=== PATIENT | female | born 1965 | race Native Hawaiian/Other Pacific Islander ===

== ENCOUNTER 2017-01-05 10:56 | Outpatient (CLI) | payer OTHER ==
[~2017-01-05 10:56] MED LIST: ALPR1TAB61 PO; BENICAR20 MG PO; COZAAR100 MG PO; HYDR10TA47 PO; HYDR25TA60 PO; LIPITOR10 MG PO; OMEPRAZOLE20 MG PO; PRISTIQ100 MG OR; ZANTAC300 MG PO
[2017-01-05] MEDS ORDERED: ASPIR-8181 MG PO (11:13)
== END 2017-01-05 10:58 | disposition short-term general hospital (02) ==
LOC: AMB 10:56
DX: R53.1 Weakness (principal); R68.89 Other general symptoms and signs
CPT/HCPCS: A0425; A0427

== ENCOUNTER 2017-01-05 10:58 | Emergency (ER) | payer OTHER ==
[~2017-01-05] VITALS: Ht 160 cm; Wt 70.3 kg
[2017-01-05] MEDS ORDERED: ASPIR-8181 MG PO (11:13)
[2017-01-05 11:35] LABS: PLATELET COUNT 370 K/uL (152-353)
[2017-01-05 11:41] LABS: POTASSIUM 2.5 mmol/L (3.6-5.2); SODIUM 139 mmol/L (136-145)
[2017-01-05 12:39] VITALS: BP 126/85; TEMP 98.1
== END 2017-01-05 12:40 | disposition home or self-care (01) ==
LOC: ED 10:58
DX: K52.89 Other specified noninfective gastroenteritis and colitis (principal); E87.6 Hypokalemia; B96.81 Helicobacter pylori [H. pylori] as the cause of diseases classified elsewhere
CPT/HCPCS: 80053; 81000; 85027; 86318; 96360; 99284

== ENCOUNTER 2017-01-18 14:26 | Outpatient (CLI) | payer OTHER ==
[~2017-01-18 14:26] MED LIST changes: +ASPIR-8181 MG PO
[2017-01-18 14:52] LABS: PLATELET COUNT 203 K/uL (152-353)
[2017-01-18 16:02] LABS: POTASSIUM 3.7 mmol/L (3.6-5.2); SODIUM 136 mmol/L (136-145)
== END 2017-01-18 19:16 | disposition home or self-care (01) ==
LOC: LAB 14:26
PROVIDERS: Nurse Practitioner Family
DX: K21.9 Gastro-esophageal reflux disease without esophagitis (principal); R53.83 Other fatigue; R74.8 Abnormal levels of other serum enzymes
CPT/HCPCS: 80053; 80061; 83036; 84436; 84443; 85027

== ENCOUNTER 2017-04-05 12:35 | Outpatient (CLI) | payer OTHER ==
[2017-04-05 12:56] LABS: PLATELET COUNT 320 K/uL (152-353)
[2017-04-05 13:41] LABS: POTASSIUM 3.7 mmol/L (3.6-5.2); SODIUM 140 mmol/L (136-145)
== END 2017-04-05 14:00 | disposition home or self-care (01) ==
LOC: LAB 12:35
PROVIDERS: Nurse Practitioner Family
DX: I10 Essential (primary) hypertension (principal); E78.4 Other hyperlipidemia; Z79.899 Other long term (current) drug therapy; Z51.81 Encounter for therapeutic drug level monitoring; E55.9 Vitamin D deficiency, unspecified
CPT/HCPCS: 80053; 80061; 82306; 82607; 83036; 84439; 84443; 85027

== ENCOUNTER 2017-10-10 15:33 | Outpatient (CLI) | payer OTHER | END 2017-10-10 16:35 | disposition home or self-care (01) | LOC: RAD 15:33 | DX: R07.89 Other chest pain (principal); Z91.81 History of falling ==

== ENCOUNTER 2018-01-09 14:14 | Outpatient (CLI) | payer OTHER ==
[2018-01-09 14:36] LABS: POTASSIUM 3.8 mmol/L (3.6-5.2); SODIUM 139 mmol/L (136-145)
[2018-01-09 14:43] LABS: PLATELET COUNT 298 K/uL (152-353)
== END 2018-01-09 18:19 | disposition home or self-care (01) ==
LOC: LAB 14:14
PROVIDERS: Nurse Practitioner Family
DX: R53.83 Other fatigue (principal); Z79.899 Other long term (current) drug therapy; Z51.81 Encounter for therapeutic drug level monitoring; E78.4 Other hyperlipidemia; I10 Essential (primary) hypertension; F41.8 Other specified anxiety disorders
CPT/HCPCS: 80053; 80061; 82306; 82607; 83036; 84436; 84443; 85027

== ENCOUNTER 2018-01-26 10:29 | Outpatient (CLI) | payer OTHER | END 2018-01-26 23:00 | disposition home or self-care (01) | LOC: US 10:29 | DX: R10.13 Epigastric pain (principal) ==

== ENCOUNTER 2018-02-16 08:54 | Inpatient (IN) | payer OTHER ==
[~2018-02-16] VITALS: Ht 160 cm; Wt 66.3 kg
[2018-02-16 10:30] VITALS: BP 143/98; TEMP 97.9; Ht 160 cm; Wt 66.3 kg
[2018-02-16] MEDS ORDERED: PANTOPRAZOLE 40MG TA PO (10:57)
[2018-02-16] MEDS ORDERED: DESVENLAFAXINE100 MG (10:57)
[2018-02-16] MEDS ORDERED: HYDROCHLOROT12.5 M1 PO (10:58)
[2018-02-16] MEDS ORDERED: HYDR10TA47 PO (10:59)
[2018-02-16] MEDS ORDERED: POT CHLORIDE10 MEQ OR (11:01)
[2018-02-16] MEDS ORDERED: RALOXIFENE HYDR60 MG PO (11:01)
[2018-02-16 12:00] VITALS: BP 143/98; TEMP 97.9
[2018-02-16 13:22] LABS: PLATELET COUNT 321 K/uL (152-353)
[2018-02-16 14:14] LABS: POTASSIUM 3.5 mmol/L (3.6-5.2)
[2018-02-16 16:00] VITALS: BP 130/90; TEMP 97.9
[2018-02-16 19:36] VITALS: BP 141/93; TEMP 98.2
[2018-02-17] VITALS: BP 105/75; TEMP 98.1
[2018-02-17 04:00] VITALS: BP 107/61; TEMP 98.2
[2018-02-17 05:23] LABS: PLATELET COUNT 267 K/uL (152-353)
[2018-02-17 06:44] LABS: POTASSIUM 3.8 mmol/L (3.6-5.2)
[2018-02-17 08:00] VITALS: BP 126/82; TEMP 97.8
[2018-02-17 12:00] VITALS: BP 125/87; TEMP 98
[2018-02-17 16:00] VITALS: BP 136/91; TEMP 97.8
[2018-02-17 19:44] VITALS: BP 117/81; TEMP 98.3
[2018-02-18] VITALS: BP 112/63; TEMP 97.9
[2018-02-18 02:19] LABS: PLATELET COUNT 299 K/uL (152-353)
[2018-02-18 03:13] LABS: POTASSIUM 3.4 mmol/L (3.6-5.2)
[2018-02-18 04:25] VITALS: BP 116/72; TEMP 98
[2018-02-18 08:00] VITALS: BP 126/77; TEMP 98.7
[2018-02-18 12:00] VITALS: BP 148/90; TEMP 97.8
[2018-02-18 16:00] VITALS: BP 124/82; TEMP 98
[2018-02-18 19:52] VITALS: BP 131/86; TEMP 98.3
[2018-02-19] VITALS: BP 116/72; TEMP 98.1
[2018-02-19 04:00] VITALS: BP 131/75; TEMP 98.3
[2018-02-19 05:37] LABS: PLATELET COUNT 266 K/uL (152-353)
[2018-02-19 08:00] VITALS: BP 133/76; TEMP 98
[2018-02-19] MEDS ORDERED: MONDOXYNE NL100 MG PO (09:21)
== END 2018-02-19 11:08 | disposition home or self-care (01) | DRG 601 ==
LOC: MED/SURG 08:54
PROVIDERS: Emergency Medicine; ADMIT Nurse Practitioner Family
DX: N61.0 Mastitis without abscess (principal); I10 Essential (primary) hypertension; E78.4 Other hyperlipidemia; F32.9 Major depressive disorder, single episode, unspecified; K21.9 Gastro-esophageal reflux disease without esophagitis; B95.7 Other staphylococcus as the cause of diseases classified elsewhere
CPT/HCPCS: 36415; 80048; 80053; 80202; 83735; 85027; 87070; 87077; 87185; 87186; 87205; 93005; J2930; J3370

== ENCOUNTER → 2020-04-27 | Outpatient (CLI) | payer OTHER ==
[~2020-04-27] MED LIST changes: +DESVENLAFAXINE100 MG; +HYDROCHLOROT12.5 M1 PO; +MONDOXYNE NL100 MG PO; +PANTOPRAZOLE 40MG TA PO; +POT CHLORIDE10 MEQ OR; +RALOXIFENE HYDR60 MG PO
== END ==
LOC: LAB 20:18
DX: M06.4 Inflammatory polyarthropathy (principal); M19.071 Primary osteoarthritis, right ankle and foot; M19.072 Primary osteoarthritis, left ankle and foot
CPT/HCPCS: 36415; 85651; 86038; 86140; 86200; 86430

== ENCOUNTER 2020-08-24 15:47 | Observation (INO) | payer OTHER ==
[~2020-08-24] VITALS: Ht 160 cm; Wt 51.5 kg
[~2020-08-24 15:47] MED LIST changes: -POT CHLORIDE10 MEQ OR; +POT CHLORIDE10 MEQ PO
[2020-08-24 16:10] VITALS: BP 116/89; TEMP 100.2
[2020-08-24 16:58] LABS: PLATELET COUNT 372 K/uL (152-353)
[2020-08-24 17:15] VITALS: BP 115/90; TEMP 99.9
[2020-08-24 17:24] LABS: POTASSIUM 2.4 mmol/L (3.6-5.2)
[2020-08-24 18:12] VITALS: BP 120/86
[2020-08-24 21:39] VITALS: BP 116/86; TEMP 99.1; Ht 160 cm; Wt 51.5 kg
[2020-08-24] MEDS ORDERED: ZOFRAN8 MG PO (23:39)
[2020-08-24] MEDS ORDERED: GABA300C2 PO ×2 (23:41→23:42)
[2020-08-25] VITALS: BP 149/87; TEMP 97.6
[2020-08-25 04:00] VITALS: BP 116/76; TEMP 98.6
[2020-08-25 05:51] LABS: PLATELET COUNT 265 K/uL (152-353)
[2020-08-25 05:56] LABS: POTASSIUM 2.4 mmol/L (3.6-5.2)
[2020-08-25 08:00] VITALS: BP 126/85; TEMP 98.3
[2020-08-25 12:00] VITALS: BP 109/82; TEMP 98.6
[2020-08-25 16:00] VITALS: BP 121/89; TEMP 99.5
[2020-08-25 17:29] LABS: POTASSIUM 3.6 mmol/L (3.6-5.2)
[2020-08-25 20:00] VITALS: BP 132/78; TEMP 98.7
[2020-08-26 00:26] VITALS: BP 112/79; TEMP 99.3
[2020-08-26 04:00] VITALS: BP 116/86; TEMP 98.9
[2020-08-26 05:51] LABS: PLATELET COUNT 264 K/uL (152-353)
[2020-08-26 08:00] VITALS: BP 120/80; TEMP 99.1
[2020-08-26 12:00] VITALS: BP 125/84; TEMP 97.9
== END 2020-08-26 15:35 | disposition home or self-care (01) ==
LOC: ED 15:47 → MED/SURG 18:50
PROVIDERS: Emergency Medicine Emergency Medical Services; ADMIT Internal Medicine
DX: R41.82 Altered mental status, unspecified (principal); E87.6 Hypokalemia; E78.49 Other hyperlipidemia; K21.9 Gastro-esophageal reflux disease without esophagitis; F32.89 Other specified depressive episodes; Z85.3 Personal history of malignant neoplasm of breast; G62.89 Other specified polyneuropathies; R44.0 Auditory hallucinations; R44.1 Visual hallucinations
CPT/HCPCS: 36415; 80048; 80053; 80307; 80329; 81000; 83735; 84100; 85027; 87635; 93005; 96360; 96365; 96366; 96372; 96375; 99220; 99285; G0378; J1650; J2060; U0003

== ENCOUNTER 2021-05-19 14:41 | Outpatient (CLI) | payer OTHER ==
[~2021-05-19 14:41] MED LIST changes: +GABA300C2 PO; +ZOFRAN8 MG PO
== END 2021-05-19 21:42 | disposition home or self-care (01) ==
LOC: MRI 14:41
PROVIDERS: ATTEND Orthopaedic Surgery
DX: M54.12 Radiculopathy, cervical region (principal); M50.323 Other cervical disc degeneration at C6-C7 level